=== PATIENT | male | born 1945 | race Caucasian/White ===

== ENCOUNTER 2020-01-24 13:28 | Emergency (ER) | payer OTHER ==
[2020-01-24] MEDS ORDERED: Sodium Chloride 0.9% 10 ML Syringe FLUSH PRN (13:40)
--- NOTE | 2020-01-24 13:50 | EDM.PDOC ---
ED HPI GENERAL MEDICAL PROBLEM - General Chief Complaint: General Stated Complaint: ER Time Seen by Provider: 01/24/20 13:32 Source of Information: Reports: Family - History of Present Illness INITIAL COMMENTS - FREE TEXT/NARRATIVE: Tavares is a 74 y/o male who is brought to the ER by his today for increased tremors and overall weakness. He had his home health visit today and they nurse thought he seemed to have tremors all over his body, which is unusual for him. He has Lewy Body Dementia and had been cared for exclusively at home by his with Home Health assistance. He didn't really want to get out of bed today and he seemed overall more weak. He had his bath today and the aide thought he seemed to be ill so his brought him to the ER. The patient is seen for primary care at the [facility] in [place]. He sees neurology in [place]. - Related Data Allergies Allergy/AdvReac Type Severity Reaction Status Date / Time gemfibrozil Allergy Swelling Verified 01/24/20 13:34 morphine Allergy Cannot Verified 01/24/20 13:34 Remember Home Meds: Home Meds Acetaminophen [Tylenol] 325 mg PO ASDIRECTED 01/24/20 [History] Albuterol Sulfate [Proair Digihaler] 90 mcg IH QID 01/24/20 [History] Aspirin 81 mg PO DAILY 01/24/20 [History] Budesonide/Formoterol Fumarate [Budesonide-Formoterol 160-4.5] 10.2 gm IH BID 01/24/20 [History] DULoxetine [Cymbalta] 60 mg PO DAILY 01/24/20 [History] Donepezil HCl 10 mg PO BEDTIME 01/24/20 [History] Finasteride 5 mg PO DAILY 01/24/20 [History] Fluticasone Propionate [Flovent Diskus] 50 mcg IH DAILY 01/24/20 [History] Meloxicam 15 mg PO DAILY 01/24/20 [History] Metoprolol Tartrate [Lopressor] 100 mg PO BID 01/24/20 [History] Multivitamin [Multivitamins] 1 cap PO DAILY 01/24/20 [History] Simvastatin [Zocor] 80 mg PO BEDTIME 01/24/20 [History] Tamsulosin [Flomax] 0.4 mg PO DAILY 01/24/20 [History] hydroCHLOROthiazide [Hydrochlorothiazide] 25 mg PO DAILY 01/24/20 [History] Past Medical History Neurological History: Reports: Other (See Below) (Lewy Body Dementia) ED ROS GENERAL - Review of Systems Review Of Systems: See Below ED EXAM, GENERAL - Physical Exam Exam: See Below General Appearance: Alert, WD/WN, No Apparent Distress (Elderly male) Eye Exam: Bilateral Eye: PERRL Ears: Normal External Exam, Normal Canal, Hearing Grossly Normal, Normal TMs Nose: Normal Inspection, Normal Mucosa Throat/Mouth: Normal Oropharynx, No Airway Compromise, Other (Lips slightly dry) Head: Atraumatic, Normocephalic Neck: Normal Inspection, Supple, Non-Tender Respiratory/Chest: Wheezing (faint wheezing throughout) Cardiovascular: Regular Rate, Rhythm, Systolic Murmur GI/Abdominal: Normal Bowel Sounds, Soft, Non-Tender (Male) Exam: Deferred Rectal (Males) Exam: Deferred Back Exam: Normal Inspection Extremities: Normal Inspection, Normal Capillary Refill Neurological: Alert, CN II-XII Intact, Slow to Respond Skin Exam: Warm, Dry, Intact, Normal Color Lymphatic: No Adenopathy Course - Vital Signs Text/Narrative:: 1332 The patient was seen on arrival to the ER. Labs ordered. 1445 Labs reviewed. CBC neg, COVID neg, and note BUN=28. Boiler Assistant Operator normal, but patient has not voided yet. Will given a liter of NS over a couple hours and hopefully be able to check a UA when he can void. NS 1000cc over 2 hours ordered. Patient also had mild wheezing and had not yet had his daily inhalers due to weakness, albuterol neb ordered. 1600 Breathing easier following neb, wheezing gone now. 1700 Still not voided, second liter of NS ordered. 1810 Patient able to void after 1/2 second liter NS infused. No further excessive tremors and patient now more talkative and looks better. Conversation more coherent. Patient and his given discharge instructions and will send the patient home. He left the ER in stable condition. Last Recorded V/S: Last Vital Signs Temp 36.2 C 01/24/20 13:34 Pulse 53 L 01/24/20 16:46 Resp 12 01/24/20 16:46 BP 143/64 H 01/24/20 16:46 Pulse Ox 92 L 01/24/20 16:46 - Orders/Labs/Meds Orders: Active Orders 24 hr Category Date Time Status RT Aerosol Therapy [RC] ASDIRECTED Care 01/24/20 14:54 Active Sodium Chloride 0.9% [Saline Flush] Med 01/24/20 13:40 Active 10 ml FLUSH ASDIRECTED PRN Saline Lock Insert [OM.PC] Stat Oth 01/24/20 13:40 Ordered Medication Orders Sodium Chloride (Saline Flush) 10 ml FLUSH ASDIRECTED PRN PRN Reason: Keep Vein Open Labs: Laboratory Tests 01/24/20 01/24/20 01/24/20 Range/Units 13:50 14:08 14:08 WBC 8.5 (4.0-10.0) x10^3/uL RBC 5.38 (4.5-6.0) x10^6/uL Hgb 16.5 (14.0-18.0) g/dL Hct 48.6 (40.0-52.0) % MCV 90.3 (78.0-93.0) fL MCH 30.7 (26.0-32.0) pg MCHC 34.0 (32.0-36.0) g/dL RDW Coeff of Zach 13.3 (10.0-15.0) % Plt Count 170 (130-400) x10^3/uL Neut % (Auto) 63.7 (50.0-80.0) % Lymph % (Auto) 22.9 L (25.0-50.0) % [place] % (Auto) 10.0 (2.0-11.0) % Eos % (Auto) 3.0 (0.0-4.0) % Baso % (Auto) 0.4 (0.2-1.2) % Sodium 139 (136-145) mmol/L Potassium 3.8 (3.5-5.1) mmol/L Chloride 101 (98-107) mmol/L Carbon Dioxide 28 (21-32) mmol/L Anion Gap 13.8 (10-20) mmol/L BUN 28 H (7-18) mg/dL Creatinine 1.3 (0.70-1.30) mg/dL Est Cr Clr Drug Dosing 54.71 mL/min Estimated GFR (MDRD) 54 Glucose 132 H (74-106) mg/dL Calcium 9.3 (8.5-10.1) mg/dL Corrected Calcium 9.62 (8.5-10.1) mg/dL Total Bilirubin 0.6 (0.2-1.0) mg/dL AST 20 (15-37) U/L ALT 34 (16-63) U/L Alkaline Phosphatase 71 (46-116) U/L Total Protein 7.5 (6.4-8.2) g/dL Albumin 3.6 (3.4-5.0) g/dL Globulin 3.9 Albumin/Globulin Ratio 0.92 Urine Color (YELLOW) Urine Appearance (CLEAR) Urine pH (5.0-8.0) Ur Specific [place] Urine Protein (NEGATIVE) mg/dL Urine Glucose (UA) (NEGATIVE) mg/dL Urine Ketones (NEGATIVE) mg/dL Urine Occult Blood (NEGATIVE) Urine Nitrite (NEGATIVE) Urine Bilirubin (NEGATIVE) Urine Urobilinogen (0.2) EU/dL Ur Leukocyte Esterase (NEGATIVE) SARS CoV-2 RNA Rapid RAYMOND Negative (NEGATIVE) 01/24/20 Range/Units 18:04 WBC (4.0-10.0) x10^3/uL RBC (4.5-6.0) x10^6/uL Hgb (14.0-18.0) g/dL Hct (40.0-52.0) % MCV (78.0-93.0) fL MCH (26.0-32.0) pg MCHC (32.0-36.0) g/dL RDW Coeff of Zach (10.0-15.0) % Plt Count (130-400) x10^3/uL Neut % (Auto) (50.0-80.0) % Lymph % (Auto) (25.0-50.0) % [place] % (Auto) (2.0-11.0) % Eos % (Auto) (0.0-4.0) % Baso % (Auto) (0.2-1.2) % Sodium (136-145) mmol/L Potassium (3.5-5.1) mmol/L Chloride (98-107) mmol/L Carbon Dioxide (21-32) mmol/L Anion Gap (10-20) mmol/L BUN (7-18) mg/dL Creatinine (0.70-1.30) mg/dL Est Cr Clr Drug Dosing mL/min Estimated GFR (MDRD) Glucose (74-106) mg/dL Calcium (8.5-10.1) mg/dL Corrected Calcium (8.5-10.1) mg/dL Total Bilirubin (0.2-1.0) mg/dL AST (15-37) U/L ALT (16-63) U/L Alkaline Phosphatase (46-116) U/L Total Protein (6.4-8.2) g/dL Albumin (3.4-5.0) g/dL Globulin Albumin/Globulin Ratio Urine Color Dark yellow H (YELLOW) Urine Appearance Slightly cloudy H (CLEAR) Urine pH 5.5 (5.0-8.0) Ur Specific [place] >=1.030 Urine Protein Negative (NEGATIVE) mg/dL Urine Glucose (UA) Negative (NEGATIVE) mg/dL Urine Ketones Negative (NEGATIVE) mg/dL Urine Occult Blood Negative (NEGATIVE) Urine Nitrite Negative (NEGATIVE) Urine Bilirubin Negative (NEGATIVE) Urine Urobilinogen 0.2 (0.2) EU/dL Ur Leukocyte Esterase Negative (NEGATIVE) SARS CoV-2 RNA Rapid RAYMOND (NEGATIVE) Meds: Medications Generic Name Dose Route Start Last Admin Trade Name Freq PRN Reason Stop Dose Admin Sodium Chloride 10 ml 01/24/20 13:40 Saline Flush FLUSH ASDIRECTED PRN Keep Vein Open Discontinued Medications Generic Name Dose Route Start Last Admin Trade Name Freq PRN Reason Stop Dose Admin Albuterol 2.5 mg 01/24/20 14:54 01/24/20 15:05 Proventil Neb Soln NEB 01/24/20 14:55 2.5 mg ONETIME ONE Administration Sodium Chloride 1,000 mls @ 500 mls/hr 01/24/20 14:52 01/24/20 15:01 Normal Saline IV 01/24/20 16:51 500 mls/hr ONETIME ONE Administration - Radiology Interpretation Free Text/Narrative:: XR Chest 1V=no acute findings Departure - Departure Time of Disposition: 18:20 Disposition: Home, Self-Care 01 Condition: Good Clinical Impression: Dehydration, Lewy body dementia - Discharge Information *PRESCRIPTION DRUG MONITORING PROGRAM REVIEWED*: Not Applicable *COPY OF PRESCRIPTION DRUG MONITORING REPORT IN PATIENT CHARLES: Not Applicable Instructions: Dehydration, Adult, [id number], Lewy Body Dementia Referrals: PCP,None [Primary Care Provider] - Forms: ED Department Discharge Sepsis Event Note (ED) - Evaluation Sepsis Screening Result: No Definite Risk - Focused Exam Vital Signs: Vital Signs Temp Pulse Resp BP Pulse Ox 01/24/20 16:46 53 L 12 143/64 H 92 L 01/24/20 14:49 55 L 21 H 136/69 92 L 01/24/20 13:34 36.2 C 53 L 24 H 148/54 H 94 L - My Orders Last 24 Hours: My Active Orders 01/24/20 13:40 Sodium Chloride 0.9% [Saline Flush] 10 ml FLUSH ASDIRECTED PRN Saline Lock Insert [OM.PC] Stat 01/24/20 14:54 RT Aerosol Therapy [RC] ASDIRECTED - Assessment/Plan Last 24 Hours: My Active Orders 01/24/20 13:40 Sodium Chloride 0.9% [Saline Flush] 10 ml FLUSH ASDIRECTED PRN Saline Lock Insert [OM.PC] Stat 01/24/20 14:54 RT Aerosol Therapy [RC] ASDIRECTED Assessment:: 1)Dehydration 2)Hx Lewy Body Dementia Plan: -Resume home medications as prescribed by PCP at the [facility] -Continue all cares at home as previously ordered -Push oral fluids -Keep your upcoming Neurology appt in 2 weeks or see PCP sooner if any concerns -Return to the ER if any other concerns or new symptoms
--- NOTE | 2020-01-24 14:21 | CR ---
[id number] RAD/RAD Chest PA or AP 1V EXAM: FRONTAL CHEST INDICATION: WHEEZING. COMPARISON: None. DISCUSSION: Possible underlying emphysema. No acute infiltrates. Borderline heart size without evidence of heart failure. IMPRESSION: 1. No acute findings. Pan Poon MD 01/24/20 2998 Thank you for allowing us to participate in the care of your patient.
[2020-01-24 14:34] LABS: ANION GAP 13.8 mmol/L (10-20)
[2020-01-24] MEDS ORDERED: Albuterol 0.083% 2.5 MG/3 ML Neb Soln NEB ONE (14:54)
[2020-01-24] MEDS: Sodium Chloride 0.9% 1,000 ML IV ONE ×2 (15:01→18:00)
[2020-01-24] MEDS ORDERED: Sodium Chloride 0.9% 500 ML IV ONE (18:00)
[2020-01-24] MEDS ORDERED: Sodium Chloride 0.9% 1,000 ML IV ONE (18:26)
== END 2020-01-24 18:28 | disposition home or self-care (01) ==
LOC: VM.ED 13:28
DX: G31.83 Neurocognitive disorder with Lewy bodies (principal); F02.80 Dementia in other diseases classified elsewhere, unspecified severity, without behavioral disturbance, psychotic disturbance, mood disturbance, and anxiety; E86.0 Dehydration; Z88.5 Allergy status to narcotic agent; Z88.8 Allergy status to other drugs, medicaments and biological substances; Z79.82 Long term (current) use of aspirin; Z20.828 Contact with and (suspected) exposure to other viral communicable diseases
CPT/HCPCS: 36415; 71045; 80053; 81003; 85025; 96360; 96361; 99284; 99284-25; J7030; J7613-GY; U0002

== ENCOUNTER 2020-04-19 21:43 | Emergency (ER) | payer OTHER ==
[2020-04-19] MEDS ORDERED: Sodium Chloride 0.9% 10 ML Syringe FLUSH PRN (21:44)
[2020-04-19] MEDS ORDERED: Azithromycin 250 MG Tab PO ONE (22:03)
[2020-04-19] MEDS ORDERED: methylPREDNISolone Sodium Succinate 125 MG/2 ML SDV IVPUSH ONE (22:03)
[2020-04-19] MEDS ORDERED: cefTRIAXone 1 GM Vial IVPUSH ONE (22:03)
[2020-04-19] MEDS ORDERED: Albuterol/Ipratropium 3.0-0.5 MG/3 ML Neb Soln NEB ONE (22:03)
[2020-04-19] MEDS ORDERED: Albuterol 2.5 MG/0.5 ML UD Neb NEB STA (22:09)
[2020-04-19] MEDS ORDERED: LORazepam 2 MG/ML SDV IVPUSH ONE (22:14)
[2020-04-19 23:23] LABS: CHLORIDE,CL 101 mmol/L (98-107); SODIUM,NA 138 mmol/L (136-145)
--- NOTE | 2020-04-19 23:28 | EDM.PDOC ---
ED HPI GENERAL MEDICAL PROBLEM - General Chief Complaint: Respiratory Problem Stated Complaint: Increased SOB, lethargy, hypoxia Time Seen by Provider: 04/19/20 21:45 Source of Information: Reports: Patient, Family History Limitations: Reports: Altered Mental Status - History of Present Illness INITIAL COMMENTS - FREE TEXT/NARRATIVE: Patient was brought to the emergency department today by his daughter who is actually a nurse in the emergency department. This patient has a history of Lewy bodies dementia with Parkinson's. He was exposed to a grandson was Covid positive about a week ago. For the past about 4 to 5 days the primary caregiver of the of this patient has noticed that he has not been self. He does have a history of COPD. She notes that he has a little bit more shortness of breath coughing wheezing. He has not been as active. He has not been drinking as much fluids or eating much for food. Most of the HPI is obtained from the daughter who is also primary caregiver and the on the following due to the patient's dementia. They noted at home today with oxygen saturation about 86% on room air. He is not typically on the oxygen for his limitation at home. He has been using for more of his nebulizers without much improvement of his shortness of breath. He identified a fever today of 101.2. With the recent Covid exposure and his worsening status he was brought to the emergency department for further evaluation. He has not been vomiting. He has no diarrhea. The patient does not offer any complaints at this time. - Related Data Allergies Allergy/AdvReac Type Severity Reaction Status Date / Time gemfibrozil Allergy Swelling Verified 04/19/20 23:38 morphine Allergy Cannot Verified 04/19/20 23:38 Remember Home Meds: Home Meds Acetaminophen [Tylenol] 325 mg PO ASDIRECTED 01/24/20 [History] Albuterol Sulfate [Proair Digihaler] 90 mcg IH QID 01/24/20 [History] Aspirin 81 mg PO DAILY 01/24/20 [History] Budesonide/Formoterol Fumarate [Budesonide-Formoterol 160-4.5] 10.2 gm IH BID 01/24/20 [History] DULoxetine [Cymbalta] 60 mg PO DAILY 01/24/20 [History] Donepezil HCl 10 mg PO BEDTIME 01/24/20 [History] Finasteride 5 mg PO DAILY 01/24/20 [History] Fluticasone Propionate [Flovent Diskus] 50 mcg IH DAILY 01/24/20 [History] Meloxicam 15 mg PO DAILY 01/24/20 [History] Metoprolol Tartrate [Lopressor] 100 mg PO BID 01/24/20 [History] Multivitamin [Multivitamins] 1 cap PO DAILY 01/24/20 [History] Simvastatin [Zocor] 80 mg PO BEDTIME 01/24/20 [History] Tamsulosin [Flomax] 0.4 mg PO DAILY 01/24/20 [History] hydroCHLOROthiazide [Hydrochlorothiazide] 25 mg PO DAILY 01/24/20 [History] Past Medical History Neurological History: Reports: Other (See Below) (Lewy Body Dementia) Other Neuro History: Lewy Body Dementia - Infectious Disease History Infectious Disease History: Reports: Novel Coronavirus ED ROS GENERAL - Review of Systems Review Of Systems: Unable To Obtain Reason Not Obtained: Patient with dementia. ED EXAM, GENERAL - Physical Exam Exam: See Below Free Text/Narrative:: He is alert and interactive. He is mildly tachypneic and mildly short of breath on exam. He is able to speak about 3-5 word sentences. He has some audible wheezing. He gets very short of breath with any physical exertion. There is no severe distress. No labored breathing. Exam Limited By: Altered Mental Status General Appearance: Alert, WD/WN Eye Exam: Bilateral Eye: EOMI, PERRL Ears: Normal External Exam Nose: Normal Inspection Throat/Mouth: Normal Inspection Head: Atraumatic, Normocephalic Neck: Normal Inspection, Supple Respiratory/Chest: No Respiratory Distress, Decreased Breath Sounds, Wheezing (Inspiratory expiratory wheezing bilaterally.). No: Crackles, Rales, Rhonchi, Stridor, Accessory Muscle Use, Retractions Cardiovascular: Normal Peripheral Pulses, Regular Rate, Rhythm Peripheral Pulses: 2+: Radial (L), Radial (R), Posterior Tibial (L), Posterior Tibial (R), Dorsalis Pedis (L), Dorsalis Pedis (R) GI/Abdominal: Normal Bowel Sounds, Soft, Non-Tender, Pelvis Stable (Male) Exam: Deferred Rectal (Males) Exam: Deferred Back Exam: Normal Inspection, Full Range of Motion Extremities: Normal Inspection, Normal Range of Motion, Pedal Edema (1+ minimally pigmented edema bilaterally around the ankles) Neurological: Alert, Normal Gait, No Motor/Sensory Deficits, Confused (Although this is his baseline) Psychiatric: Flat Affect Skin Exam: Intact, Cool, Diaphoretic, Pallor Lymphatic: No Adenopathy #1 Interpretation EKG Date: 04/19/20 Time: 22:45 Rhythm: NSR Rate (Beats/Min): 84 [place]: Normal P-Wave: Present QRS: Other (Intraventricular conduction delay) ST-T: Normal QT: Normal Course - Vital Signs Last Recorded V/S: Last Vital Signs Temp 95.4 F L 04/19/20 21:43 Pulse 81 04/19/20 23:58 Resp 24 H 04/19/20 23:58 BP 124/80 04/19/20 23:58 Pulse Ox 94 L 04/19/20 23:58 - Orders/Labs/Meds Labs: Laboratory Tests 04/19/20 04/19/20 04/19/20 Range/Units 21:50 22:25 22:25 WBC 4.5 (4.0-10.0) x10^3/uL RBC 5.07 (4.5-6.0) x10^6/uL Hgb 15.4 (14.0-18.0) g/dL Hct 45.8 (40.0-52.0) % MCV 90.3 (78.0-93.0) fL MCH 30.4 (26.0-32.0) pg MCHC 33.6 (32.0-36.0) g/dL RDW Coeff of Zach 14.3 (10.0-15.0) % Plt Count 105 L (130-400) x10^3/uL Neut % (Auto) 54.6 (50.0-80.0) % Lymph % (Auto) 28.9 (25.0-50.0) % [place] % (Auto) 15.6 H (2.0-11.0) % Eos % (Auto) 0.7 (0.0-4.0) % Baso % (Auto) 0.2 (0.2-1.2) % D-Dimer, Quantitative (<=0.58) mg/LFEU Sodium 138 (136-145) mmol/L Potassium 3.9 (3.5-5.1) mmol/L Chloride 101 (98-107) mmol/L Carbon Dioxide 29 (21-32) mmol/L Anion Gap 11.9 (10-20) mmol/L BUN 18 (7-18) mg/dL Creatinine 1.3 (0.70-1.30) mg/dL Est Cr Clr Drug Dosing TNP Estimated GFR (MDRD) 54 Glucose 119 H (74-106) mg/dL Lactic Acid (0.4-2.0) mmol/L Calcium 8.2 L (8.5-10.1) mg/dL Corrected Calcium 8.60 (8.5-10.1) mg/dL Ferritin (26-388) ng/mL Total Bilirubin 0.6 (0.2-1.0) mg/dL AST 30 (15-37) U/L ALT 42 (16-63) U/L Alkaline Phosphatase 72 (46-116) U/L Lactate Dehydrogenase (85-227) U/L Troponin I 0.485 H* (<=0.056) ng/mL C-Reactive Protein 2.2 H (<=0.9) mg/dL NT-Pro-B Natriuret Pep 456 H (<=125) pg/mL Total Protein 7.6 (6.4-8.2) g/dL Albumin 3.5 (3.4-5.0) g/dL Globulin 4.1 Albumin/Globulin Ratio 0.85 Procalcitonin ng/mL SARS CoV-2 RNA Rapid RAYMOND Positive H (NEGATIVE) 04/19/20 04/19/20 04/19/20 Range/Units 22:25 22:25 22:25 WBC (4.0-10.0) x10^3/uL RBC (4.5-6.0) x10^6/uL Hgb (14.0-18.0) g/dL Hct (40.0-52.0) % MCV (78.0-93.0) fL MCH (26.0-32.0) pg MCHC (32.0-36.0) g/dL RDW Coeff of Zach (10.0-15.0) % Plt Count (130-400) x10^3/uL Neut % (Auto) (50.0-80.0) % Lymph % (Auto) (25.0-50.0) % [place] % (Auto) (2.0-11.0) % Eos % (Auto) (0.0-4.0) % Baso % (Auto) (0.2-1.2) % D-Dimer, Quantitative 0.39 (<=0.58) mg/LFEU Sodium (136-145) mmol/L Potassium (3.5-5.1) mmol/L Chloride (98-107) mmol/L Carbon Dioxide (21-32) mmol/L Anion Gap (10-20) mmol/L BUN (7-18) mg/dL Creatinine (0.70-1.30) mg/dL Est Cr Clr Drug Dosing Estimated GFR (MDRD) Glucose (74-106) mg/dL Lactic Acid 1.2 (0.4-2.0) mmol/L Calcium (8.5-10.1) mg/dL Corrected Calcium (8.5-10.1) mg/dL Ferritin (26-388) ng/mL Total Bilirubin (0.2-1.0) mg/dL AST (15-37) U/L ALT (16-63) U/L Alkaline Phosphatase (46-116) U/L Lactate Dehydrogenase 181 (85-227) U/L Troponin I (<=0.056) ng/mL C-Reactive Protein (<=0.9) mg/dL NT-Pro-B Natriuret Pep (<=125) pg/mL Total Protein (6.4-8.2) g/dL Albumin (3.4-5.0) g/dL Globulin Albumin/Globulin Ratio Procalcitonin ng/mL SARS CoV-2 RNA Rapid RAYMOND (NEGATIVE) 04/19/20 04/19/20 Range/Units 22:25 22:25 WBC (4.0-10.0) x10^3/uL RBC (4.5-6.0) x10^6/uL Hgb (14.0-18.0) g/dL Hct (40.0-52.0) % MCV (78.0-93.0) fL MCH (26.0-32.0) pg MCHC (32.0-36.0) g/dL RDW Coeff of Zach (10.0-15.0) % Plt Count (130-400) x10^3/uL Neut % (Auto) (50.0-80.0) % Lymph % (Auto) (25.0-50.0) % [place] % (Auto) (2.0-11.0) % Eos % (Auto) (0.0-4.0) % Baso % (Auto) (0.2-1.2) % D-Dimer, Quantitative (<=0.58) mg/LFEU Sodium (136-145) mmol/L Potassium (3.5-5.1) mmol/L Chloride (98-107) mmol/L Carbon Dioxide (21-32) mmol/L Anion Gap (10-20) mmol/L BUN (7-18) mg/dL Creatinine (0.70-1.30) mg/dL Est Cr Clr Drug Dosing Estimated GFR (MDRD) Glucose (74-106) mg/dL Lactic Acid (0.4-2.0) mmol/L Calcium (8.5-10.1) mg/dL Corrected Calcium (8.5-10.1) mg/dL Ferritin 534 H (26-388) ng/mL Total Bilirubin (0.2-1.0) mg/dL AST (15-37) U/L ALT (16-63) U/L Alkaline Phosphatase (46-116) U/L Lactate Dehydrogenase (85-227) U/L Troponin I (<=0.056) ng/mL C-Reactive Protein (<=0.9) mg/dL NT-Pro-B Natriuret Pep (<=125) pg/mL Total Protein (6.4-8.2) g/dL Albumin (3.4-5.0) g/dL Globulin Albumin/Globulin Ratio Procalcitonin 0.08 ng/mL SARS CoV-2 RNA Rapid RAYMOND (NEGATIVE) Meds: Medications Discontinued Medications Generic Name Dose Route Start Last Admin Trade Name Freq PRN Reason Stop Dose Admin Albuterol 2.5 mg 04/19/20 22:09 04/19/20 22:27 Proventil Neb Soln [facility] 04/19/20 22:10 2.5 mg STAT STA Administration Albuterol/Ipratropium 3 ml 04/19/20 22:03 Duoneb 3.0-0.5 Mg/3 Ml [facility] 04/19/20 22:04 ONETIME ONE Aspirin 324 mg 04/20/20 00:09 04/20/20 00:13 Aspirin PO 04/20/20 00:10 324 mg ONETIME ONE Administration Azithromycin 500 mg 04/19/20 22:03 04/19/20 22:38 Zithromax PO 04/19/20 22:04 500 mg ONETIME ONE Administration Ceftriaxone Sodium 1 gm 04/19/20 22:03 04/19/20 22:45 Rocephin IVPUSH 04/19/20 22:04 1 gm STAT ONE Administration Lactated Ringer's 1,000 mls @ 125 mls/hr 04/20/20 00:07 04/20/20 00:51 Ringers, Lactated IV 04/20/20 08:06 125 mls/hr ONETIME ONE Administration Remdesivir 200 mg/ Sodium 250 mls @ 250 mls/hr 04/20/20 00:07 04/20/20 00:51 Chloride IV 04/20/20 01:06 250 mls/hr ONETIME ONE Administration Lorazepam 1 mg 04/19/20 22:14 04/19/20 22:40 Ativan IVPUSH 04/19/20 22:15 0.5 mg STAT ONE Administration Methylprednisolone Sodium Succinate 125 mg 04/19/20 22:03 04/19/20 22:30 Solu-Medrol IVPUSH 04/19/20 22:04 125 mg ONETIME ONE Administration Sodium Chloride 10 ml 04/19/20 21:44 Saline Flush FLUSH ASDIRECTED PRN Keep Vein Open - Radiology Interpretation Free Text/Narrative:: Chest x-ray per radiology shows no significant abnormalities. - Re-Assessments/Exams Free Text/Narrative Re-Assessment/Exam: This patient is requiring almost 4 L of oxygen to keep his oxygen saturation above 92%. He was given an albuterol nebulizer with improvement of his shortness of breath. His inspiratory wheezing has resolved his expiratory has improved but is still present. He is able to speak in full sentences at this time. IV was established labs are drawn. Influenza negative. Covid positive. Blood cultures x2. With the history of his COPD and now possible exacerbation due to his Covid status, procalcitonin is pending and I did administer 1 g of Rocephin IV push and 5 mg of the azithromycin p.o. He is also given 125 mg of Solu-Medrol IV push. Laboratory evaluation shows a white blood cell count of 4.5, hemoglobin 15.4, platelet 105. D-dimer not elevated at 0.39. Sodium 138 potassium 3.9 BUN 18 creatinine 1.3, glucose 119, lactic acid 1.2, calcium 8.2, Ferritin 534 with a lactate dehydrogenase of 181. C-reactive protein minimally elevated at 2.2. troponin 0 0.45. The patient does not actively have any chest pain. He does not have an elevated D-dimer concerning for a PE. His EKG is on remarkable from his previous. He was given 324 of oral chewable aspirin. This is most likely due to cardiac strain due to Covid status although with his multiple comorbidities this could be other pathology as well. This patient is high risk with Covid with his comorbidities and age. I talked with the patient and his daughter as well as the about the administration of remdesivir. The EUA for remdesivir was discussed with them at length as well although this is not a requirement anymore I still discussed that this is very new medication with the left of unknown as to it. Although this is best course of action at this time with this patient who is elderly and comorbid status. The family to include the daughter and the mother's questions were answered they were comfortable with this plan we will administered remdesivir per protocol. Due to his elevation of troponin he is not an [facility] I called and spoke with Dr. King at [facility] due to the multiple issues today. HPI ER course findings and concerns were relayed to Dr. King. He was comfortable w ith the care of this patient at this time and no new guidance or recommendation was made. He excepted this patient in transfer to the Covid unit at [facility]. I discussed the plan of care with the patient his daughter and his my concerns will be elevated troponin although this is most likely due to cardiac strain due to the hypoxia or the Covid status. We will send him to [facility] in [place] for further care evaluation. They are comfortable with this plan and her questions were answered. Departure - Departure Time of Disposition: 00:31 Disposition: DC/Tfer to Acute Hospital 02 Clinical Impression: Elevated troponin, COVID-19, Hypoxia, COPD with exacerbation - Discharge Information Referrals: PCP,Unknown [Primary Care Provider] - Forms: ED Department Discharge, Interfacility Transfer SHANIQUE
[2020-04-20 00:03] LABS: ANION GAP 11.9 mmol/L (10-20)
[2020-04-20] MEDS ORDERED: Lactated Ringers 1,000 ML IV ONE (00:07)
[2020-04-20] MEDS ORDERED: REMDESIVIR 200 MG in Sodium Chloride 0.9% 250 ML IV ONE (00:07)
[2020-04-20] MEDS ORDERED: Aspirin 81 MG Tab.Chew PO ONE (00:09)
--- NOTE | 2020-04-20 07:48 | CR ---
[id number] RAD/RAD Chest PA or AP 1V EXAM: SINGLE VIEW CHEST. INDICATION: VIRAL INFECTION HYPOXIA COMPARISON: CORRELATION IS MADE WITH 2019 FINDINGS: The lungs are clear The cardiomediastinal contour is stable IMPRESSION: NO PNEUMONIA. Richard Hearn MD 04/20/20 0300 Thank you for allowing us to participate in the care of your patient.
== END 2020-04-20 01:15 | disposition short-term general hospital (02) ==
LOC: VM.ED 21:43
DX: U07.1 COVID-19 (principal); R09.02 Hypoxemia; J44.1 Chronic obstructive pulmonary disease with (acute) exacerbation; R79.89 Other specified abnormal findings of blood chemistry; G31.83 Neurocognitive disorder with Lewy bodies; F02.80 Dementia in other diseases classified elsewhere, unspecified severity, without behavioral disturbance, psychotic disturbance, mood disturbance, and anxiety; Z88.5 Allergy status to narcotic agent; Z88.8 Allergy status to other drugs, medicaments and biological substances; Z79.82 Long term (current) use of aspirin; Z79.899 Other long term (current) drug therapy
CPT/HCPCS: 36415; 71045; 80053; 82728; 83605; 83615; 83880; 84145; 84484; 85025; 85379; 86140; 87040; 87635; 93005; 96365; 96375; 99285; A9270; J0696; J2060; J2930; J7050; J7120; 93010; 99284; J7611; U0002

== ENCOUNTER 2020-05-04 03:04 | Emergency (ER) | payer OTHER ==
[2020-05-04] MEDS ORDERED: Ondansetron 4 MG/2 ML SDV IV ONE (03:25)
[2020-05-04] MEDS ORDERED: Sodium Chloride 0.9% 10 ML Syringe FLUSH PRN (03:25)
[2020-05-04] MEDS ORDERED: HYDROmorphone 0.5 MG/0.5 ML Syringe IV ONE ×2 (03:29→04:40)
[2020-05-04] MEDS ORDERED: Lactated Ringers 1,000 ML IV SCH (03:30)
[2020-05-04] MEDS ORDERED: Albuterol/Ipratropium 3.0-0.5 MG/3 ML Neb Soln NEB ONE (03:36)
[2020-05-04] MEDS ORDERED: Iopamidol 612 MG/ML 100 ML Bottle IVPUSH ONE (03:42)
--- NOTE | 2020-05-04 03:42 | EDM.PDOC ---
ED HPI GENERAL MEDICAL PROBLEM - General Chief Complaint: Abdominal Pain Stated Complaint: abd pain Time Seen by Provider: 05/04/20 03:05 Source of Information: Reports: Patient, EMS, Family History Limitations: Reports: No Limitations - History of Present Illness INITIAL COMMENTS - FREE TEXT/NARRATIVE: Patient comes emergency department today [facility] with complaints of abdominal pain. As of note I had seen this patient about 2 weeks ago in the emergency department where he was diagnosed with COVID-19 acutely. He is outside of his quarantine time and is in the [facility] for rehab following his inpatient stay in [place] where he received remdesivir and treatment for his COVID-19. He has been doing [facility] at the [facility] he has been there for just a couple of days. He has been eating and drinking appropriately. He has been having normal bowel movements. Tonight he began to complain of abdominal pain distention and bloating. No nausea or vomiting. The pain started shortly after dinner. He has no chest pain or shortness of breath or difficulty breathing. He does have a longstanding history of COPD is chronically has some shortness of breath but he is at his baseline. Chronically is diaphoretic as well and no more diaphoretic than typical. Denies any hematuria dysuria or urinary frequency. No black or tarry stools. Has had a couple of bowel movements without diarrhea. Does have a history of Lewy bodies dementia as well. He did receive 100 mcg of fentanyl for pain management prior to coming to the emergency department due to his abdominal pain and his inability to sit down with this. Right Lower Abdomen Pain Score (Numeric/FACES): 9 - Related Data Allergies Allergy/AdvReac Type Severity Reaction Status Date / Time gemfibrozil Allergy Swelling Verified 05/04/20 04:20 morphine Allergy Cannot Verified 05/04/20 04:20 Remember Home Meds: Home Meds Acetaminophen [Tylenol] 650 mg PO ASDIRECTED 01/24/20 [History] Albuterol Sulfate [Proair Digihaler] 2 puff IH QID 01/24/20 [History] Aspirin 81 mg PO DAILY 01/24/20 [History] Budesonide/Formoterol Fumarate [Budesonide-Formoterol 160-4.5] 2 puff IH BID 01/24/20 [History] DULoxetine [Cymbalta] 90 mg PO DAILY 01/24/20 [History] Donepezil HCl 10 mg PO BEDTIME 01/24/20 [History] Finasteride 5 mg PO DAILY 01/24/20 [History] Meloxicam 15 mg PO DAILY 01/24/20 [History] Metoprolol Tartrate [Lopressor] 100 mg PO BID 01/24/20 [History] Multivitamin [Multivitamins] 1 cap PO DAILY 01/24/20 [History] Tamsulosin [Flomax] 0.4 mg PO DAILY 01/24/20 [History] hydroCHLOROthiazide [Hydrochlorothiazide] 25 mg PO DAILY 01/24/20 [History] Ascorbic Acid [C-1000] 1,000 mg PO BID 05/04/20 [History] Carbidopa/Levodopa [Carbidopa-Levodopa 25-100 Tab] 1 each PO TID 05/04/20 [History] Cholecalciferol (Vitamin D3) [Cholecalciferol] 1,000 unit PO DAILY 05/04/20 [History] Fluticasone Propionate [Flonase] 1 spray NASBOTH DAILY 05/04/20 [History] QUEtiapine [SEROquel] 12.5 mg PO BID PRN 05/04/20 [History] Rosuvastatin [Crestor] 10 mg PO DAILY 05/04/20 [History] predniSONE [Prednisone] 40 mg PO DAILY 05/04/20 [History] Past Medical History Cardiovascular History: Reports: High Cholesterol, Hypertension Respiratory History: Reports: COPD Genitourinary History: Reports: Prostate Disorder Neurological History: Reports: Other (See Below) Other Neuro History: Lewy Body Dementia - Infectious Disease History Infectious Disease History: Reports: Novel Coronavirus ED ROS GENERAL - Review of Systems Review Of Systems: Comprehensive ROS is negative, except as noted in HPI. ED EXAM, GI/ABD - Physical Exam Exam: See Below Exam Limited By: No Limitations General Appearance: Alert, WD/WN, Mild Distress (He does appear mildly uncomfortable in pain. He did receive 100 mcg of fentanyl due to his severe abdominal pain that he was unable to sit on the cot with.) Eyes: Bilateral: EOMI Ears: Normal External Exam, Normal TMs Nose: Normal Inspection Throat/Mouth: Normal Inspection Head: Atraumatic Neck: Normal Inspection Respiratory/Chest: No Respiratory Distress, No Accessory Muscle Use, Chest Non- Tender, Decreased Breath Sounds, Wheezing (He does have some inspiratory and expiratory wheezing bilaterally. Some audible wheezing as well.). No: Crackles, Rales, Rhonchi Cardiovascular: Normal Peripheral Pulses, Regular Rate, Rhythm GI/Abdominal Exam: No Abnormal Bruit, Distended, Guarding (Throughout his abd with ? peritoneal signs. With even the lightest palpation he has severe pain. Tympanic percussion throughout the abd. ), Tender (Throughout. ). No: Rebound, Hernia (Male) Exam: Deferred Rectal (Males) Exam: Deferred Back Exam: Normal Inspection, Full Range of Motion Extremities: Normal Inspection, Normal Range of Motion, Normal Capillary Refill Neurological: Alert, Oriented (To his baseline per the . ) Skin Exam: Intact, Cool, Diaphoretic, Pallor Course - Vital Signs Last Recorded V/S: Last Vital Signs Temp 97.1 F 05/04/20 03:10 Pulse 91 05/04/20 06:07 Resp 16 05/04/20 06:07 BP 104/56 L 05/04/20 06:07 Pulse Ox 94 L 05/04/20 06:07 - Orders/Labs/Meds Orders: Active Orders 24 hr Category Date Time Status RT Aerosol Therapy [RC] ASDIRECTED Care 05/04/20 03:36 Active Abdomen Pelvis w Cont [CT] Stat Exams 05/04/20 03:23 Taken Chest 1V Frontal [CR] Stat Exams 05/04/20 03:23 Taken CULTURE BLOOD [BC] Stat Lab 05/04/20 04:07 Results CULTURE BLOOD [BC] Stat Lab 05/04/20 04:12 Results UA RFX FELISHA AND CULT IF INDIC [URIN] Stat Lab 05/04/20 03:23 Ordered Lactated Ringers [Ringers, Lactated] 1,000 ml Med 05/04/20 03:30 Active IV ASDIRECTED Lactated Ringers [Ringers, Lactated] 1,000 ml Med 05/04/20 05:57 Ordered IV ONETIME Sodium Chloride 0.9% [Saline Flush] Med 05/04/20 03:25 Active 10 ml FLUSH ASDIRECTED PRN Blood Culture x2 Reflex Set [OM.PC] Stat Oth 05/04/20 03:52 Ordered Peripheral IV Insertion Adult [OM.PC] Stat Oth 05/04/20 03:23 Ordered Medication Orders Lactated Ringer's (Ringers, Lactated) 1,000 mls @ 125 mls/hr IV ASDIRECTED RADHA Last Admin: 05/04/20 03:35 Dose: 125 mls/hr Documented by: LY Lactated Ringer's (Ringers, Lactated) 1,000 mls @ 999 mls/hr IV ONETIME ONE Stop: 05/04/20 06:57 Last Admin: 05/04/20 06:06 Dose: 999 mls/hr Documented by: LY Sodium Chloride (Saline Flush) 10 ml FLUSH ASDIRECTED PRN PRN Reason: Keep Vein Open Labs: Laboratory Tests 05/04/20 05/04/20 05/04/20 Range/Units 03:38 03:38 03:38 WBC 23.1 H* (4.0-10.0) x10^3/uL RBC 5.59 (4.5-6.0) x10^6/uL Hgb 17.0 D (14.0-18.0) g/dL Hct 49.0 (40.0-52.0) % MCV 87.7 (78.0-93.0) fL MCH 30.4 (26.0-32.0) pg MCHC 34.7 (32.0-36.0) g/dL RDW Coeff of Zach 14.2 (10.0-15.0) % Plt Count 161 (130-400) x10^3/uL Neut % (Auto) 88.9 H (50.0-80.0) % Lymph % (Auto) 4.4 L (25.0-50.0) % [place] % (Auto) 6.6 (2.0-11.0) % Eos % (Auto) 0.0 (0.0-4.0) % Baso % (Auto) 0.1 L (0.2-1.2) % Sodium 139 (136-145) mmol/L Potassium 4.0 (3.5-5.1) mmol/L Chloride 100 (98-107) mmol/L Carbon Dioxide 28 (21-32) mmol/L Anion Gap 15.0 (10-20) mmol/L BUN 23 H (7-18) mg/dL Creatinine 1.3 (0.70-1.30) mg/dL Est Cr Clr Drug Dosing 54.71 mL/min Estimated GFR (MDRD) 54 Glucose 152 H (74-106) mg/dL Lactic Acid 2.4 H* (0.4-2.0) mmol/L Calcium 9.2 (8.5-10.1) mg/dL Corrected Calcium 9.76 (8.5-10.1) mg/dL Total Bilirubin 1.1 H (0.2-1.0) mg/dL AST 14 L (15-37) U/L ALT 18 (16-63) U/L Alkaline Phosphatase 79 (46-116) U/L C-Reactive Protein 0.7 (<=0.9) mg/dL Total Protein 7.3 (6.4-8.2) g/dL Albumin 3.3 L (3.4-5.0) g/dL Globulin 4.0 Albumin/Globulin Ratio 0.83 Lipase 868 H (73-393) U/L Meds: Medications Generic Name Dose Route Start Last Admin Trade Name Freq PRN Reason Stop Dose Admin Lactated Ringer's 1,000 mls @ 125 mls/hr 05/04/20 03:30 05/04/20 03:35 Ringers, Lactated IV 125 mls/hr ASDIRECTED RADHA Administration Lactated Ringer's 1,000 mls @ 999 mls/hr 05/04/20 05:57 05/04/20 06:06 Ringers, Lactated IV 05/04/20 06:57 999 mls/hr ONETIME ONE Administration Sodium Chloride 10 ml 05/04/20 03:25 Saline Flush FLUSH ASDIRECTED PRN Keep Vein Open Discontinued Medications Generic Name Dose Route Start Last Admin Trade Name Freq PRN Reason Stop Dose Admin Albuterol/Ipratropium 3 ml 05/04/20 03:36 05/04/20 03:49 Duoneb 3.0-0.5 Mg/3 Ml NEB 05/04/20 03:37 3 ml ONETIME ONE Administration Hydromorphone HCl 0.5 mg 05/04/20 03:29 05/04/20 03:35 Dilaudid IV 05/04/20 03:30 0.5 mg ONETIME ONE Administration Hydromorphone HCl 0.5 mg 05/04/20 04:40 05/04/20 04:45 Dilaudid IV 05/04/20 04:41 0.5 mg ONETIME ONE Administration Piperacillin Sod/Tazobactam 100 mls @ 200 mls/hr 05/04/20 05:25 05/04/20 05:30 Sod 3.375 gm/ Sodium Chloride IV 05/04/20 05:54 200 mls/hr STAT ONE Administration Iopamidol 100 ml 05/04/20 03:42 05/04/20 04:59 Isovue-300 (61%) IVPUSH 05/04/20 03:43 100 ml ONETIME ONE Administration Ondansetron HCl 4 mg 05/04/20 03:25 05/04/20 03:35 Zofran IV 05/04/20 03:26 4 mg ONETIME ONE Administration - Radiology Interpretation Free Text/Narrative:: Chest x-ray per radiology shows no acute pathology. CT abdomen pelvis per radiology with IV contrast shows right mild basilar atelectasis. Moderate volume free peritoneal air. Small volume perihepatic ascites. No identification of the site of perforation. Also 3.1 upper abdomen aortic aneurysm. - Re-Assessments/Exams Free Text/Narrative Re-Assessment/Exam: 05/04/20 DuoNeb with resolution of the patient's wheezing and shortness of breath. IV was established labs are drawn to include blood cultures x2. Dilaudid for IV pain management. LR 250 mill bolus and 125 mils an hour. CBC with a quite elevated white blood cell count of 23.1. With a hemoglobin of 17. Lactic acid 2.4. Zosyn 3.[address] of the abdomen pelvis concerning with a moderate volume free peritoneal air. Unknown cause of perforation. The patient did start to drop his blood pressure into the mid 80s systolically following a couple doses of Dilaudid. He improved his blood pressure after about a liter bolus of fluid to a blood pressure 128/73. I initially called and spoke with the ID internal medicine as well as the surgery department and they do not feel with his comorbidities to include his COPD Lewy body dementia his aortic stenosis as well as his a ascending aneurysm that was recently diagnosed that he should be sent to [facility]. I called and spoke with Dr. Silva at [facility] in [place]. HPI ER COURSE findings and concerns were relayed to him. His questions were answered. No new orders given. I discussed the plan of care and the critical findings on the patients CT scan. Their questions were answered and they are comfortable with the plan. Departure - Departure Time of Disposition: 06:21 Disposition: DC/Tfer to Acute Hospital 02 Clinical Impression: Intra-abdominal free air of unknown etiology - Discharge Information Referrals: PCP,None [Primary Care Provider] - Forms: ED Department Discharge, Interfacility Transfer SHANIQUE Sepsis Event Note (ED) - Evaluation Sepsis Screening Result: No Definite Risk - Focused Exam Vital Signs: Vital Signs Temp Pulse Resp BP Pulse Ox 05/04/20 06:07 91 16 104/56 L 94 L 05/04/20 05:55 88 84/50 L 05/04/20 05:38 92 16 86/50 L 94 L 05/04/20 05:00 89 16 112/62 94 L 05/04/20 04:25 86 16 132/62 93 L 05/04/20 03:10 97.1 F 67 24 H 138/72 94 L - My Orders Last 24 Hours: My Active Orders 05/04/20 03:23 Abdomen Pelvis w Cont [CT] Stat Chest 1V Frontal [CR] Stat UA RFX FELISHA AND CULT IF INDIC [URIN] Stat Peripheral IV Insertion Adult [OM.PC] Stat 05/04/20 03:25 Sodium Chloride 0.9% [Saline Flush] 10 ml FLUSH ASDIRECTED PRN 05/04/20 03:30 Lactated Ringers [Ringers, Lactated] 1,000 ml IV ASDIRECTED 05/04/20 03:36 RT Aerosol Therapy [RC] ASDIRECTED 05/04/20 03:52 Blood Culture x2 Reflex Set [OM.PC] Stat 05/04/20 04:07 CULTURE BLOOD [BC] Stat 05/04/20 04:12 CULTURE BLOOD [BC] Stat 05/04/20 05:57 Lactated Ringers [Ringers, Lactated] 1,000 ml IV ONETIME - Assessment/Plan Last 24 Hours: My Active Orders 05/04/20 03:23 Abdomen Pelvis w Cont [CT] Stat Chest 1V Frontal [CR] Stat UA RFX FELISHA AND CULT IF INDIC [URIN] Stat Peripheral IV Insertion Adult [OM.PC] Stat 05/04/20 03:25 Sodium Chloride 0.9% [Saline Flush] 10 ml FLUSH ASDIRECTED PRN 05/04/20 03:30 Lactated Ringers [Ringers, Lactated] 1,000 ml IV ASDIRECTED 05/04/20 03:36 RT Aerosol Therapy [RC] ASDIRECTED 05/04/20 03:52 Blood Culture x2 Reflex Set [OM.PC] Stat 05/04/20 04:07 CULTURE BLOOD [BC] Stat 05/04/20 04:12 CULTURE BLOOD [BC] Stat 05/04/20 05:57 Lactated Ringers [Ringers, Lactated] 1,000 ml IV ONETIME
[2020-05-04] MEDS ORDERED: Piperacillin/Tazobactam 3.375 GM in Sodium Chloride 0.9% 100 ML IV ONE (05:25)
[2020-05-04] MEDS ORDERED: Lactated Ringers 1,000 ML IV ONE (05:57)
--- NOTE | 2020-05-04 09:36 | CT ---
[id number] CT/CT Abdomen Pelvis W IV EXAM: CT Abdomen Pelvis W IV CLINICAL DATA: ABDOMEN PAIN, DISTENSION, ?BOWEL OBSTRUCTION COMPARISON STUDY: None. FINDINGS: Dependent atelectasis at the lung bases bilaterally. There is free air noted within the abdomen. The liver, spleen, pancreas, adrenal glands, gallbladder and kidneys are grossly unremarkable. Bilateral simple appearing renal cysts. No bowel obstruction or inflammation. Small amount of free fluid within the right paracolic gutter. No lymphadenopathy. Vascular calcifications. 3.1 cm infrarenal abdominal aortic aneurysm. Scattered changes of spondylosis the spine. No fracture or osseous lesion. IMPRESSION: 1. Moderate amount of free intraperitoneal air. In the absence of recent surgery or intraperitoneal procedure, findings are concerning for perforation. The source of the perforation is not well identified. Small amount of fluid within the right paracolic gutter. Sebastian Steven DO 05/04/20 0935 Thank you for allowing us to participate in the care of your patient.
--- NOTE | 2020-05-04 09:39 | CR ---
[id number] RAD/RAD Chest PA or AP 1V EXAM: RAD Chest PA or AP 1V INDICATION: ABDOMEN PAIN, DISTENSION, ?BOWEL OBSTRUCTION COMPARISON: 04/19/2020. DISCUSSION: Cardiomediastinal silhouette is stable in size and contour. No infiltrate, effusion, pneumothorax, or edema. IMPRESSION: No acute cardiopulmonary abnormality. Sebastian Steven DO 05/04/20 0939 Thank you for allowing us to participate in the care of your patient.
== END 2020-05-04 06:55 | disposition short-term general hospital (02) ==
LOC: VM.ED 03:04
DX: K66.8 Other specified disorders of peritoneum (principal); E78.00 Pure hypercholesterolemia, unspecified; I10 Essential (primary) hypertension; J44.9 Chronic obstructive pulmonary disease, unspecified; N42.9 Disorder of prostate, unspecified; G31.83 Neurocognitive disorder with Lewy bodies; F02.80 Dementia in other diseases classified elsewhere, unspecified severity, without behavioral disturbance, psychotic disturbance, mood disturbance, and anxiety; Z88.8 Allergy status to other drugs, medicaments and biological substances; Z88.5 Allergy status to narcotic agent; Z79.82 Long term (current) use of aspirin; Z79.899 Other long term (current) drug therapy
CPT/HCPCS: 36415; 71045; 74177; 80053; 83605; 83690; 85025; 86140; 87040; 94640; 96365; 96375; 96376; 99284; 99285-25; J1170; J2405; J2543; J7050; J7120; J7620-GY; Q9967

== ENCOUNTER 2020-05-04 15:59 | Inpatient (IN) | payer MEDICARE, OTHER ==
[2020-05-04] MEDS ORDERED: Midazolam 1 MG/ML 2 ML SDV IVPUSH PRN (18:28)
[2020-05-04] MEDS: Ondansetron 4 MG/2 ML SDV IVPUSH PRN (18:42)
[2020-05-04] MEDS: HYDROmorphone 1 MG/ML Syringe IVPUSH PRN ×2 (18:44→22:22)
[2020-05-04] MEDS ORDERED: Atropine 1% Ophth Soln 5 ML BOTTLE SL PRN (19:43)
[2020-05-04] MEDS ORDERED: Prochlorperazine 10 MG in Sodium Chloride 0.9% 50 ML IV PRN (19:43)
[2020-05-04] MEDS ORDERED: Acetaminophen 650 MG Supp RECTAL PRN (19:43)
[2020-05-04] MEDS ORDERED: Lidocaine 2% Viscous Solution 15 ML Cup PO PRN (19:43)
[2020-05-04] MEDS ORDERED: Menthol/Zinc Oxide Ointment 3.5 GM Tube TOP PRN (19:43)
[2020-05-04] MEDS ORDERED: Glycopyrrolate 0.2 MG/ML 2 ML SDV IVPUSH PRN (19:45)
[2020-05-04] MEDS ORDERED: Midazolam 50 MG in Sodium Chloride 0.9% 100 ML IV SCH (19:45)
[2020-05-04] MEDS ORDERED: HYDROmorphone 1 MG/ML Syringe IVPUSH SCH (19:45)
[2020-05-04] MEDS ORDERED: Sodium Chloride 0.9% 10 ML Syringe FLUSH PRN (20:15)
--- NOTE | 2020-05-04 22:23 | HP ---
CHIEF COMPLAINT: Perforated abdominal viscus. HISTORY OF PRESENT ILLNESS: This is a 74-year-old male who had been recovering at [facility] since 04/30 after a 04/20 through 04/30 admit for COPD exacerbation from a COVID-19 infection. The patient received Solu-Medrol, remdesivir, nebs, vitamins, ceftriaxone during his stay. He had a known ascending aortic aneurysm and [id number] aortic stenosis by CT and was recommended for some outpatient followup. The patient's overall health has been complicated by Lewy body dementia, but he was at home with his until his COVID illness. While recovering at the long-term, he had acute onset of abdominal pain around 2:30 a.m. last night. He was brought over to the emergency room and evaluated and found to have free air. Given his overall health and recent COVID-[address]-elevation [place] earlier this month, decision was made to not pursue surgery. The patient's said he has not wanted any surgeries and he was initiated on comfort medications with Versed 6 mg every 2 hours and Dilaudid along with that. When the medicines wear off, he has been writhing in pain per his family. They were unable to put in a Maravilla prior to transfer, but he does have a midline IV. When I saw him, he had already received the Versed and Dilaudid by nursing, which I had okayed. He was resting comfortably in bed. He was not on any oxygen. His abdomen was distended. He did not even grimace when I palpated, but I did not do any deep palpation. His and grandson were at the bedside. His daughter who is a nurse did come up and also visited later. ALLERGIES: The patient's allergies include gemfibrozil and morphine, known, but he is tolerating Dilaudid. MEDICATIONS: His current medication list from [facility] included the Dilaudid 1 mg every 2 hours as needed for severe pain, Zofran 4 mg every 4 hours as needed for nausea, Versed 2 mg every 2 hours as needed for agitation, Robinul 0.5 to 1 every 4 hours as needed for secretions, Protonix 40 mg IV, prednisone 40 mg daily for 5 days, vitamin C, vitamin D, lopressor, Aricept, multivitamin, Flomax, Crestor, Sinemet, Tylenol, albuterol, Symbicort, Proscar, Flonase, and hydrochlorothiazide. However, the patient likely will not be able to take any oral medications. PAST MEDICAL HISTORY: Sounds like he has done most of his doctoring with the [place]. He has had chronic back pain due to degenerative disk disease of lumbar spine. He has had COPD. He has Lewy body dementia. He has obesity, dyslipidemia, essential hypertension, BPH. PAST SURGICAL HISTORY: Epidural steroid injections. FAMILY HISTORY: Not listed, not obtained. SOCIAL HISTORY: The patient is . He lives at home with his . REVIEW OF SYSTEMS: Unobtainable due to patient's condition. PHYSICAL EXAMINATION: VITAL SIGNS: No vitals yet recorded other than O2 was 89%. HEART: Regular rate and rhythm. S1, S2 with murmur appreciated. LUNGS: Lung sounds were clear with poor respiratory effort. No crackles. No wheezes. ABDOMEN: Distended. No bowel sounds. No extreme tenderness, but again I did not do forceful palpation on exam. EXTREMITIES: Cool, even his arms. His left forearm had a bleeding site from an IV removal. NEUROLOGIC: He is sedated. He did not open his eyes to verbal stimuli. I did not do painful stimuli, other than during his abdominal exam. SKIN: He had extensive bruising across his abdomen from previous heparin or Lovenox injections on his acute stay. Otherwise, most of the history was obtained from the who was at the bedside. We did discuss oxygen at this point, we left it off as he is not gasping for air and it may prolong things. ASSESSMENT AND PLAN: 1. Perforated abdominal viscus. It is not clear which area; however, the patient did not want to pursue surgery. Family did not want to pursue surgery. Therefore, he was transferred back to [facility] for further end of life cares. 2. COVID-19 infection, admitted from 04/20 through 04/30, resolved. He is not having respiratory symptoms. He is not on any medications for that. 3. Lewy body dementia. Currently, I held the Sinemet. If he becomes awake and alert and wants to take meds, we will reorder it. 4. Essential hypertension. Blood pressure medications are on hold. We will do vitals p.r.n. 5. Chronic obstructive pulmonary disease. I do not think he will be able to cooperate with an inhaler. 6. Thoracic aortic aneurysm and aortic stenosis, which do not make him a good surgical candidate. 7. Obesity. 8. Benign prostatic hypertrophy. We will do bladder scans if needed. We will not attempt to place a Maravilla unless he is having retention. The patient will be admitted for skilled end-of-life cares. I will schedule Dilaudid 1 mg q.12 hours and to continue 1 mg q.2 hours p.r.n. Due to availability of our Versed supply, we have decided to do a Versed 2 mg/hour drip. We can titrate that up if needed or turn it off if he becomes overly sedated. He will have Robinul and atropine for secretions. He will have Zofran and Compazine for nausea. Turn and reposition as needed. Tylenol will be available rectal. Skin cares with Calmoseptine. The patient is being admitted for compassionate and end-of-life cares. We will allow family visitation. For DVT prophylaxis, he does not need any medications. Dr. Fulton is following the patient at the long-term. MKA: 05/04/2020 20:26:04 MODL: 05/04/2020 22:13:13 /[id number] [place]
[2020-05-05] MEDS: Ondansetron 4 MG/2 ML SDV IVPUSH PRN (01:33)
[2020-05-05] MEDS: HYDROmorphone 1 MG/ML Syringe IVPUSH PRN (01:33)
--- NOTE | 2020-05-05 10:13 | PCM.DCSUM1 ---
Discharge Summary - Hospital Course Free Text/Narrative:: Patent admitted for end of life care for a bowel perforation and was managed with scheduled and prn dilaudid and a versed drip. He during the first night of his admission. His passing was anticipated to be within hours to days. See detailed H and P completed. - Discharge Data Discharge Date: 05/05/20 Discharge Disposition: 20 Condition: - Referral to Home Health Primary Care Physician: PCP None - Discharge Diagnosis/Problem(s) (1) Perforated bowel SNOMED Code(s): 33001090 ICD Code: K63.1 - PERFORATION OF INTESTINE (NONTRAUMATIC) Status: Acute Priority: High (2) COPD (chronic obstructive pulmonary disease) SNOMED Code(s): 18745836 ICD Code: J44.9 - CHRONIC OBSTRUCTIVE PULMONARY DISEASE, UNSPECIFIED Status: Chronic Priority: Medium Qualifiers: Chronic bronchitis type: unspecified (3) COVID-19 SNOMED Code(s): 732157483 ICD Code: U07.1 - COVID-19 Status: Resolved (4) Intra-abdominal free air of unknown etiology SNOMED Code(s): 42889530 ICD Code: K66.8 - OTHER SPECIFIED DISORDERS OF PERITONEUM Status: Acute Priority: High (5) Lewy body dementia SNOMED Code(s): 996518582 ICD Code: G31.83 - DEMENTIA WITH LEWY BODIES; F02.80 - DEMENTIA IN OTH DISEASES CLASSD ELSWHR W/O BEHAVRL DISTURB Status: Chronic Priority: High Qualifiers: Dementia behavioral disturbance: without behavioral disturbance Qualified Code(s): G31.83 - Dementia with Lewy bodies; F02.80 - Dementia in other diseases classified elsewhere without behavioral disturbance - Discharge Plan Home Medications: Home Meds Acetaminophen [Tylenol] 650 mg PO TID 01/24/20 [History] Albuterol Sulfate [Proair Digihaler] 2 puff IH QID 01/24/20 [History] Budesonide/Formoterol Fumarate [Budesonide-Formoterol 160-4.5] 2 puff IH BID 01/24/20 [History] Donepezil HCl 5 mg PO BEDTIME 01/24/20 [History] Finasteride 5 mg PO DAILY 01/24/20 [History] Metoprolol Tartrate [Lopressor] 100 mg PO BID 01/24/20 [History] Multivitamin [Multivitamins] 1 cap PO DAILY 01/24/20 [History] Tamsulosin [Flomax] 0.4 mg PO DAILY 01/24/20 [History] hydroCHLOROthiazide [Hydrochlorothiazide] 25 mg PO DAILY 01/24/20 [History] Ascorbic Acid [C-1000] 1,000 mg PO BID 05/04/20 [History] Carbidopa/Levodopa [Carbidopa-Levodopa 25-100 Tab] 1 each PO TID 05/04/20 [History] Cholecalciferol (Vitamin D3) [Cholecalciferol] 1,000 unit PO DAILY 05/04/20 [History] Fluticasone Propionate [Flonase] 1 spray NASBOTH DAILY 05/04/20 [History] Glycopyrrolate [Robinul] 0.1 - 0.2 mg IVPUSH Q4HR PRN 05/04/20 [History] HYDROmorphone [Dilaudid] 1 mg IVPUSH Q2HR PRN 05/04/20 [History] Midazolam [Versed 1 MG/ML] 5 - 15 mg IVPUSH Q2HR PRN 05/04/20 [History] Ondansetron [Zofran] 4 mg IVPUSH Q4HR PRN 05/04/20 [History] Pantoprazole [ProTONIX IV] 40 mg IVPUSH DAILY 05/04/20 [History] QUEtiapine [SEROquel] 12.5 mg PO BID PRN 05/04/20 [History] Rosuvastatin [Crestor] 10 mg PO DAILY 05/04/20 [History] predniSONE [Prednisone] 40 mg PO DAILY 05/04/20 [History] - Discharge Summary/Plan Comment DC Time >30 min.: No - Patient Data Vitals - Most Recent: Last Vital Signs Temp 97.2 F 05/04/20 18:27 Pulse 103 H 05/04/20 18:27 Resp BP 134/95 H 05/04/20 18:27 Pulse Ox 89 L 05/04/20 18:27 Med Orders - Current: Current Medications Discontinued Medications Acetaminophen (Tylenol) 650 mg RECTAL Q3H PRN PRN Reason: Pain/Fever Atropine Sulfate (Atropine 1% Ophth Soln) 0 ml SL Q2H PRN PRN Reason: Copius Secretions Calamine/Phenol (Calmoseptine) 0 gm TOP Q2H PRN PRN Reason: Irritation Glycopyrrolate (Glycopyrrolate) 0.1 - 0.2 mg IVPUSH Q4H PRN PRN Reason: Other Hydromorphone HCl (Dilaudid) 1 mg IVPUSH Q2H PRN PRN Reason: Pain Last Admin: 05/05/20 01:33 Dose: 1 mg Documented by: Hydromorphone HCl (Dilaudid) 1 mg IVPUSH Q12H RADHA Last Admin: 05/04/20 20:15 Dose: 1 mg Documented by: Midazolam HCl 50 mg/ Sodium (Chloride) 110 mls @ 4.4 mls/hr IV TITRATE RADHA Last Admin: 05/04/20 20:28 Dose: 2 mg/hr, 4.4 mls/hr Documented by: Prochlorperazine Edisylate 10 (mg/ Sodium Chloride) 52 mls @ 150 mls/hr IV Q6H PRN PRN Reason: Nausea/Vomiting Lidocaine HCl (Xylocaine 2% Viscous) 5 ml PO Q4H PRN PRN Reason: Pain Midazolam HCl (Versed 1 Mg/Ml) 0 mg IVPUSH Q2H PRN PRN Reason: Anxiety Last Admin: 05/04/20 18:46 Dose: 2 mg Documented by: Ondansetron HCl (Zofran) 4 mg IVPUSH Q4H PRN PRN Reason: Nausea Last Admin: 05/05/20 01:33 Dose: 4 mg Documented by: Sodium Chloride (Saline Flush) 10 ml FLUSH ASDIRECTED PRN PRN Reason: flush Last Admin: 05/04/20 20:29 Dose: 10 ml Documented by:
== END 2020-05-05 02:00 | disposition expired | DRG 951 ==
LOC: VM.MS 18:16
PROVIDERS: ADMIT Internal Medicine; ATTEND Internal Medicine
DX: Z51.5 Encounter for palliative care (principal); K63.1 Perforation of intestine (nontraumatic); I21.4 Non-ST elevation (NSTEMI) myocardial infarction; J44.9 Chronic obstructive pulmonary disease, unspecified; K66.8 Other specified disorders of peritoneum; G31.83 Neurocognitive disorder with Lewy bodies; F02.80 Dementia in other diseases classified elsewhere, unspecified severity, without behavioral disturbance, psychotic disturbance, mood disturbance, and anxiety; I71.2 Thoracic aortic aneurysm, without rupture; E66.9 Obesity, unspecified; N40.0 Benign prostatic hyperplasia without lower urinary tract symptoms; E78.5 Hyperlipidemia, unspecified; I10 Essential (primary) hypertension; M51.36 Other intervertebral disc degeneration, lumbar region; G89.29 Other chronic pain; I35.0 Nonrheumatic aortic (valve) stenosis; Z79.52 Long term (current) use of systemic steroids; Z88.5 Allergy status to narcotic agent; Z79.899 Other long term (current) drug therapy; Z86.19 Personal history of other infectious and parasitic diseases; Z88.8 Allergy status to other drugs, medicaments and biological substances
CPT/HCPCS: A9270-GY; J1170; J2250; J2405; J7050